=== PATIENT | female | born 1955 | race Caucasian/White ===

== ENCOUNTER 2017-03-12 07:30 | Day surgery (SDC) | payer BC ==
--- NOTE | ~2017-03-12 | EGD ---
EGD REPORT [facility] [address] [address] NAME: JANINA ESQUIVEL : 55 STATUS : REG [facility]#: [id number] AGE: 61 ADM/REG DATE : 03/12/17 MR#: [id number] REPORT SERV DATE: 03/12/17 DICTATED BY: VONDA SHORT III DATE: 03/12/17 REPORT STATUS : Draft TRANSCRIBED BY: [facility] DATE: 03/12/17 Endoscopy Center Patient Name: Janina Esquivel Date of : 1955 Attending MD: VONDA SHORT III, MD Procedure Date No Time: 03/12/2017 Procedure: Upper GI endoscopy Indications: Heartburn Referring MD: CHRISTIAN CATALAN Medicines: Propofol per Anesthesia Complications: No immediate complications. Procedure: Pre-Anesthesia Assessment: - ASA Grade Assessment: IV - A patient with severe systemic disease that is a constant threat to life. After obtaining informed consent, the endoscope was passed under direct vision. Throughout the procedure, the patient's blood pressure, pulse, and oxygen saturations were monitored continuously. The GIF H190 [id number] was introduced through the mouth, and advanced to the third part of duodenum. The upper GI endoscopy was accomplished with ease. The patient tolerated the procedure well. Findings: A small hiatus hernia was present. Evidence of an adjustable gastric banding was found in the cardia. The anastomosis was characterized by healthy appearing mucosa. Localized mild erythema was found at the gastroesophageal junction. Biopsies were taken with a cold forceps for histology. The examined duodenum was normal. Impression: - Hiatus hernia. - An adjustable gastric banding was found, anastomosis characterized by healthy appearing mucosa. - Erythema at the gastroesophageal junction. Biopsied. - Normal examined duodenum. Recommendation: - Patient has a contact number available for emergencies. The signs and symptoms of potential delayed complications were discussed with the patient. Return to normal activities tomorrow. Written discharge instructions were provided to the patient. - Discharge patient to home. - Return to previous diet. - Follow an antireflux regimen. EGD REPORT [address] [address] NAME: JANINA ESQUIVEL : 55 STATUS : REG [facility]#: [id number] AGE: 61 ADM/REG DATE : 03/12/17 MR#: [id number] REPORT SERV DATE: 03/12/17 DICTATED BY: VONDA SHORT III DATE: 03/12/17 REPORT STATUS : Draft TRANSCRIBED BY: [employer] DATE: 03/12/17 - Continue present medications. - Await pathology results. Procedure Code(s): --- Professional --- 18173, Esophagogastroduodenoscopy, flexible, transoral; with biopsy, single or multiple Diagnosis Code(s): --- Professional --- K44.9, Diaphragmatic hernia without obstruction or gangrene Z98.84, Bariatric surgery status K22.9, Disease of esophagus, unspecified R12, Heartburn CPT copyright 2013 [employer]. All rights reserved. The codes documented in this report are preliminary and upon state manager review may be revised to meet current compliance requirements. VONDA SHORT III, MD 03/12/2017 10:06 AM This report has been signed electronically. Number of Addenda: 0 Note Initiated On: 03/12/2017 9:52 AM Scope Withdrawal Time 0 hours 0 minutes 0 seconds [address] [id number]
--- NOTE | ~2017-03-12 | EGD ---
EGD REPORT [facility] [address] [address] NAME: JANINA ESQUIVEL : 55 STATUS : REG [facility]#: [id number] AGE: 61 ADM/REG DATE : 03/12/17 MR#: [id number] REPORT SERV DATE: 03/12/17 DICTATED BY: VONDA SHORT III DATE: 03/12/17 REPORT STATUS : Draft [facility]: [facility] DATE: 03/12/17 Endoscopy Center Patient Name: Janina Esquivel Date of : 1955 Attending MD: VONDA SHORT III, MD Procedure Date No Time: 03/12/2017 Procedure: Colonoscopy Indications: High risk colon cancer surveillance: Personal history of colonic polyps Referring MD: CHRISTIAN CATALAN Medicines: Propofol per Anesthesia Complications: No immediate complications. Procedure: Pre-Anesthesia Assessment: - ASA Grade Assessment: IV - A patient with severe systemic disease that is a constant threat to life. After I obtained informed consent, the scope was passed under direct vision. Throughout the procedure, the patient's blood pressure, pulse, and oxygen saturations were monitored continuously. The [facility] [id number] was introduced through the anus and advanced to the cecum, identified by appendiceal orifice and ileocecal valve. The colonoscopy was performed with ease. The patient tolerated the procedure well. The quality of the bowel preparation was good. Findings: Multiple diverticula were found in the sigmoid colon. External and internal hemorrhoids were found during retroflexion. A sessile polyp was found in the transverse colon. The polyp was 5 mm in size. The polyp was removed with a cold biopsy forceps. Resection and retrieval were complete. Impression: - Diverticulosis in the sigmoid colon. - External and internal hemorrhoids. - One 5 mm polyp in the transverse colon. Resected and retrieved. Recommendation: - Patient has a contact number available for emergencies. The signs and symptoms of potential delayed complications were discussed with the patient. Return to normal activities tomorrow. Written discharge instructions were provided to the patient. - Discharge patient to home. - Continue present medications. - Await pathology results. EGD REPORT [address] [address] NAME: JANINA ESQUIVEL : 55 STATUS : REG [facility]#: [id number] AGE: 61 ADM/REG DATE : 03/12/17 MR#: [id number] REPORT SERV DATE: 03/12/17 DICTATED BY: VONDA SHORT III DATE: 03/12/17 REPORT STATUS : Draft TRANSCRIBED BY: [employer] DATE: 03/12/17 Procedure Code(s): --- Professional --- 29592, Colonoscopy, flexible, proximal to splenic flexure; with biopsy, single or multiple Diagnosis Code(s): --- Professional --- K64.8, Other hemorrhoids K57.30, Diverticulosis of large intestine without perforation or abscess without bleeding D12.3, Benign neoplasm of transverse colon Z86.010, Personal history of colonic polyps CPT copyright 2013 [employer]. All rights reserved. The codes documented in this report are preliminary and upon cattle sorter review may be revised to meet current compliance requirements. VONDA SHORT III, MD 03/12/2017 10:21 AM This report has been signed electronically. Number of Addenda: 0 Note Initiated On: 03/12/2017 9:54 AM Scope Withdrawal Time 0 hours 10 minutes 21 seconds [address] [id number]
[~2017-03-12 07:30] MED LIST: ADVAIR250 INH; ALLEGRA180 PO; APRES25 PO; ASAB PO; BREO ELLIPTA 21 EACH INH; CALTRA600D PO; CRESTOR10 PO; DETROLLA4 PO; ENABLEX15 PO; FLONASE NAS; FOSAMAX70 MG PO; MAXAIR AUTOHALE1 INH INH; NEXIUM40 PO; PRAVAC PO; PRIN10 PO; PROVHFA INH; SINGULAIR1 PO; TOPXL50 PO; VESICARE10 MG PO; Z100 PO
== END 2017-03-12 23:59 | disposition home or self-care (01) ==
LOC: DMU 07:30
PROVIDERS: Internal Medicine Gastroenterology
PROC: 0DBL8ZZ Excision of Transverse Colon, Via Natural or Artificial Opening Endoscopic (ICD-10-PCS; principal; 2017-03-12 11:00)
PROC: 0DB48ZX Excision of Esophagogastric Junction, Via Natural or Artificial Opening Endoscopic, Diagnostic (ICD-10-PCS; 2017-03-12 11:00)
DX: Z12.11 Encounter for screening for malignant neoplasm of colon (principal); D12.3 Benign neoplasm of transverse colon; K57.30 Diverticulosis of large intestine without perforation or abscess without bleeding; K64.8 Other hemorrhoids; K64.4 Residual hemorrhoidal skin tags; K22.70 Barrett's esophagus without dysplasia; K44.9 Diaphragmatic hernia without obstruction or gangrene; Z98.84 Bariatric surgery status; Z98.0 Intestinal bypass and anastomosis status; I48.91 Unspecified atrial fibrillation; I42.8 Other cardiomyopathies; I12.9 Hypertensive chronic kidney disease with stage 1 through stage 4 chronic kidney disease, or unspecified chronic kidney disease; N18.9 Chronic kidney disease, unspecified; J45.909 Unspecified asthma, uncomplicated; M19.90 Unspecified osteoarthritis, unspecified site; M85.80 Other specified disorders of bone density and structure, unspecified site; M10.9 Gout, unspecified; E11.22 Type 2 diabetes mellitus with diabetic chronic kidney disease; E78.00 Pure hypercholesterolemia, unspecified; E66.9 Obesity, unspecified; Z68.34 Body mass index [BMI] 34.0-34.9, adult; Z95.810 Presence of automatic (implantable) cardiac defibrillator; Z88.0 Allergy status to penicillin; Z88.1 Allergy status to other antibiotic agents; Z88.2 Allergy status to sulfonamides; Z79.83 Long term (current) use of bisphosphonates; Z79.82 Long term (current) use of aspirin; Z79.51 Long term (current) use of inhaled steroids; Z79.899 Other long term (current) drug therapy; Z98.890 Other specified postprocedural states; Z90.710 Acquired absence of both cervix and uterus
CPT/HCPCS: 82962; 88305